=== PATIENT | female | born 1935 | race Caucasian/White ===

== ENCOUNTER → 2017-12-19 20:32 | Outpatient (CLI) | payer SELFPAY ==
[~2017-12-19 20:32] MED LIST: ELIQUIS2.5 MG PO; HYDROCODONE-APA1 TAB PO; KEFLEX500 MG PO; LEVO-T75 MCG PO; NEURONTIN 300300 MG PO; NORVASC2.5 MG PO; PROTONIX40 MG PO; TIROSINT75 MCG PO; ULTRAM50 MG PO; VITAMIN B-1000 MCG/M IM; VITAMIN B-12500 MC1 PO; VITAMIN D5000 UNIT PO
[2018-01-26 09:58] VITALS: BMI 29.8
== END | disposition home or self-care (01) ==
LOC: D.LABREF 20:32
DX: M25.561 Pain in right knee (principal); Z11.8 Encounter for screening for other infectious and parasitic diseases

== ENCOUNTER 2018-01-17 10:00 | Inpatient (IN) | payer MEDICARE, OTHER ==
[~2018-01-17] VITALS: Ht 167.6 cm; Wt 84.1 kg
--- NOTE | ~2018-01-17 | MORECARE ---
CASE MANAGEMENT DISCHARGE SUMMARY PATIENT: DARIAN CUNHA UNIT: [id number] ADM DATE: 01/22/18 AGE: 82 : 33 SEX: F ROOM/BED: D.2210 AUTHOR: CASE, TALENT REP PHYSICIAN: REFERRING PHYSICIAN: TITUS GIRON MD DATE OF SERVICE: 01/22/18 Discharge Plan Patient Name: DARIAN CUNHA Facility: [facility]:[place] : 1935 Planned Disposition: Inpatient Rehab Anticipated Discharge Date: Discharge Date: Expected LOS: Initial Reviewer: [id number] Initial Review Date: 01/25/2018 Generated: 01/25/18 10:49 am Patient Name: DARIAN CUNHA Page [id number] All edits/amendments must be made on the electronic document DICTATION DATE: 01/25/18947 PRINCIPAL ARCHITECT: 01/25/18947 RPT#: [id number] GA DATE: STATUS: ADM IN [facility] [address] [place] [address] END OF REPORT
--- NOTE | ~2018-01-17 | OP ---
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 PROCEDURE: Revision, total knee arthroplasty. SURGEON: Titus Giron MD DRAPERY OPERATOR: EDGARDO Perales INTRAOPERATIVE COMPLICATIONS: None. SUMMARY OF PATHOLOGIC FINDINGS: The patient had substantial polyethylene lysis both on the distal femur and the proximal tibia. While portion of the distal femur remained bonded, it did have large areas of cystic polyethylene lesions in the posterior femoral condyles. The tibial baseplate came out with no difficulty at all, was essentially grossly and globally loose. Substantial polyethylene lysis was seen throughout the tibia proximally. FINAL IMPLANTS USED: Quemulus Triathlon total stabilizing system; size 3 distal femur; 2-mm offset at noon; distal femoral augmentation medially and laterally at 5; distal femoral augmentation posteriorly, medially, and laterally at 10; 13 x 150 fluted stem; tibial baseplate was size 3; medial and lateral augments and tibial baseplate with a size 100 x 13 stem in the tibia; polyethylene size 16, total stabilized. OPERATIVE SUMMARY IN DETAIL: After obtaining the appropriate preoperative orthopaedic surgery consent as well as anesthetic consultation, evaluation, and clearance, the patient was brought to the operating room and placed on the operating table in the supine position. After adequate general laryngeal mask airway was administered, tourniquet was placed about the proximal aspect of the right lower extremity. The right lower extremity was then prepped and draped in routine sterile fashion. The leg was elevated, exsanguinated, and the tourniquet was inflated to 350 mmHg. Routine midline incision was taken from the previous utilized incision and taken down for paramedian arthrotomy. The patella was moved out of the way. At this point, substantial amount of polyethylene lysis was noted along with severe synovitis. The knee was flexed. Polyethylene was removed. The distal femur was removed with very little degree of bone loss; however, substantial amount of polyethylene lysis was noted. Again, the tibial baseplate was removed handy. At this point, substantial amount of time was taken to clean up all the polyethylene lysis, getting back to what appeared to be healthy bone and curettage as well as lavaging knee. Serial and sequential reaming of the distal femur was done for the above-mentioned size. The appropriate sizes were taken. After the distal femur was cut, the chamfer cutting guide was then placed with the size 5-mm augments. Having cut all the chamfers, the final trial components were created on the backtable and placed. It fit nicely and was left in place while the tibia was done. Again, the tibia was further cleared of any what appeared to be polyethylene lysis on OPERATIVE REPORT [id number] DARIAN CUNHA. All the cement in the central canal from the large Armando post was removed. Serial and sequential reaming done for size 13. After the proximal tibia was cut, the trial corresponding to the above final implant was fixed on the back field and the tibial baseplate was put into place. A 16 trial was put into place and found to be excellent. All this was removed. The knee was irrigated. The previously placed patellar button was cleaned and was not loose at all. No evidence of polyethylene lysis underneath this. For this reason, it was not removed and the wound was copiously irrigated. Final implants were assembled on the backtable. These were cemented into place. All excess cement was removed. After the cement was allowed to harden, the knee was taken through range of motion and found to be stable in all planes. Having completed this, the knee was again copiously irrigated in pulsatile lavage fashion. The paramedian arthrotomy was closed with #2 Ethibond followed by #1 Vicryl, 2-0 Vicryl, and skin slade. Sterile dressings were applied. The patient was awakened and taken to recovery room in stable condition. All final needle and sponge counts were correct. TRANSINT:[id number] Voice Confirmation ID: [id number] DOCUMENT ID: [id number] MACK SESAY, TITUS DE LA GARZA at 1147 CC: [id number] DICTATION DATE: 01/22/18 1121 PRODUCT TRANSFER PUMPER: 01/22/18 1244 [facility] [place] [id number] [place] [address]
[~2018-01-17 10:00] MED LIST changes: -ELIQUIS2.5 MG PO; -HYDROCODONE-APA1 TAB PO; -KEFLEX500 MG PO; -NORVASC2.5 MG PO; -PROTONIX40 MG PO; -TIROSINT75 MCG PO; -ULTRAM50 MG PO; -VITAMIN B-1000 MCG/M IM; -VITAMIN D5000 UNIT PO
[2018-01-17 12:01] LABS: ANION GAP 9.1 mmol/L (8-16); CALCIUM 8.7 mg/dL (8.5-10.1); CARBON DIOXIDE 31.6 mmol/L (21.0-32.0); POTASSIUM - SERUM 4.7 mmol/L (3.5-5.1)
[2018-01-17 12:20] LABS: APTT 25.1 SECONDS (22.8-39.4); INR 0.97 (0.85-1.17); PROTIME 12.5 SECONDS (11.6-15.0)
[2018-01-17 12:52] LABS: COLOR YELLOW (YELLOW)
[2018-01-17 12:53] LABS: APPEARANCE HAZY (CLEAR); BACTERIA FEW /hpf (NONE SEEN); BILIRUBIN NEGATIVE (NEGATIVE); EPITHELIAL CELLS 0-5 /hpf (0-5); GLUCOSE NEGATIVE (NEGATIVE); KETONE NEGATIVE (NEGATIVE); MUCUS <1+ /lpf (NONE SEEN); NITRITE NEGATIVE (NEGATIVE); PROTEIN NEGATIVE (NEGATIVE); RED CELLS - URINE OCC /hpf (0-5); UROBILINOGEN NORMAL (NORMAL)
[2018-01-17 13:12] LABS: BASOPHILS 0 % (0-2); EOSINOPHILS 3.4 % (0-7); HEMOGLOBIN 13.3 g/dL (12-16); LYMPHOCYTES 46.7 % (15-50); MCH 29.4 pg (26.0-34.0); MCHC 32.4 g/dL (31.0-37.0); MCV 90.5 fL (80.0-100.0); MEAN PLATELET VOLUME 10.7 fL (7.4-10.4); MONOCYTES 10.3 % (2-11); NEUTROPHILS 39.6 % (40-80); PLATELET COUNT 157 10x3/uL (130-400); RBC 4.53 10x6/uL (4.00-5.40); RDW 15.7 % (11.5-14.5); WBC 5.1 10x3/uL (4.8-10.8)
[2018-01-22] VITALS (9 sets, daily range): BP systolic 115–157; BP diastolic 52–97; Ht 167.6 cm; Wt 84.1 kg
[2018-01-23 04:55] VITALS: BP 111/49
[2018-01-23 06:22] LABS: HEMATOCRIT 33.7 % (36.0-48.0); HEMOGLOBIN 10.9 g/dL (12-16); MCH 29.3 pg (26.0-34.0); MCHC 32.3 g/dL (31.0-37.0); MCV 90.6 fL (80.0-100.0); MEAN PLATELET VOLUME 10.9 fL (7.4-10.4); RBC 3.72 10x6/uL (4.00-5.40); RDW 15.8 % (11.5-14.5)
[2018-01-23 08:37] VITALS: BP 114/50
[2018-01-23 12:29] VITALS: BP 114/47
[2018-01-23 20:00] VITALS: BP 123/42
[2018-01-24] VITALS: BP 127/46
[2018-01-24 05:04] VITALS: BP 115/92
[2018-01-24 05:46] LABS: HEMATOCRIT 28.3 % (36.0-48.0); MCH 28.8 pg (26.0-34.0); MCHC 31.8 g/dL (31.0-37.0); MCV 90.4 fL (80.0-100.0); MEAN PLATELET VOLUME 10.5 fL (7.4-10.4); RBC 3.13 10x6/uL (4.00-5.40); RDW 16.1 % (11.5-14.5); WBC 5.8 10x3/uL (4.8-10.8)
[2018-01-24 08:48] VITALS: BP 125/49
[2018-01-24 16:20] VITALS: BP 100/42
[2018-01-24 19:51] VITALS: BP 142/44
[2018-01-24 23:39] VITALS: BP 124/35
[2018-01-25 06:13] VITALS: BP 128/66
[2018-01-25] MEDS ORDERED: ELIQUIS2.5 MG PO (07:44)
[2018-01-25] MEDS ORDERED: HYDROCODONE-APA1 TAB PO (07:48)
[2018-01-25 08:34] VITALS: BP 108/53
[2018-01-25 12:40] VITALS: BP 120/48
[2018-01-25 16:51] VITALS: BP 129/48
[2018-01-25 20:52] VITALS: BP 138/48
[2018-01-25] MEDS ORDERED: NORVASC2.5 MG PO (22:06)
[2018-01-25] MEDS ORDERED: KEFLEX500 MG PO (22:07)
[2018-01-25] MEDS ORDERED: VITAMIN D5000 UNIT PO (22:10)
[2018-01-25] MEDS ORDERED: VITAMIN B-1000 MCG/M IM (22:11)
[2018-01-25] MEDS ORDERED: PROTONIX40 MG PO (22:11)
[2018-01-25] MEDS ORDERED: ULTRAM50 MG PO (22:12)
[2018-01-26] MEDS ORDERED: NEURONTIN 300300 MG PO (06:29)
[2018-01-26] MEDS ORDERED: VITAMIN B-12500 MC1 PO (06:29)
[2018-01-26] MEDS ORDERED: HYDROCODONE-APA1 TAB PO (06:30)
[2018-01-26] MEDS ORDERED: TIROSINT75 MCG PO (06:31)
== END 2018-01-25 21:36 | DRG 468 ==
LOC: D.SDCHOLD 10:00 → D.MS 01-22 07:54 → D.SDCHOLD 01-22 08:30 → D.MS 01-22 12:05 → D.SDCHOLD 01-23 13:12 → D.MS 01-23 17:33
PROVIDERS: Anesthesiology; Orthopaedic Surgery
PROC: 0SRC0J9 Replacement of Right Knee Joint with Synthetic Substitute, Cemented, Open Approach (ICD-10-PCS; 2018-01-22)
PROC: 0SPC0JZ Removal of Synthetic Substitute from Right Knee Joint, Open Approach (ICD-10-PCS; principal; 2018-01-22 09:30)
DX: T84.032A Mechanical loosening of internal right knee prosthetic joint, initial encounter (principal)

== ENCOUNTER 2018-01-25 21:34 | Inpatient (IN) | payer MEDICARE, OTHER ==
[~2018-01-25] VITALS: Ht 167.6 cm; Wt 83.9 kg
--- NOTE | ~2018-01-25 | RHP ---
PATIENT: DARIAN CUNHA MEDICAL RECORD: [id number] ACCOUNT: [id number] LOCATION:[facility] : [birth year] ADMISSION DATE: 01/25/18 REHABILITATION HISTORY AND PHYSICAL EXAMINATION POST ADMISSION PHYSICIAN EXAMINATION ADMITTING DIAGNOSES: Debility, status post complications of right total knee revision. HISTORY OF PRESENT ILLNESS: The patient was admitted to the inpatient rehab secondary to debility secondary to complications of a revision of her right knee secondary to loose hardware. She is an 82-year-old female patient that was admitted to have surgery on 01/22/2018. She had postop complications including hypoxia, requiring oxygen, and blood loss anemia. She had a complication from her surgery and definitely needs inpatient rehab to get back to her prior level of functioning and return home. COMORBIDITIES: Include revision of right total knee pain for a right total knee loose, total knee arthroplasty, acute blood loss anemia, postop hypoxia, self-care deficit, postop temp. PAST MEDICAL HISTORY: Significant for thyroid problems, urinary stress incontinence, arthritis and breast cancer. PAST SURGICAL HISTORY: Includes joint replacement, hysterectomy, and bilateral mastectomy. ALLERGIES: MORPHINE AND SHELLFISH. CURRENT MEDICATIONS: Include Synthroid 75 mcg daily, hydrocodone 10/325 one tab every 4 hours p.r.n., Neurontin 300 mg daily, B12 500 mcg daily, Eliquis 2.5 mg b.i.d., and polyethylene glycol 17 grams in 8 ounces of water daily. HABITS: No current alcohol or tobacco use. FAMILY HISTORY: Noncontributory. SOCIAL HISTORY: The patient hopes to return back home and get back to her prior level of functioning. REVIEW OF SYSTEMS: GENERAL: Does complain of some weakness. HEENT: Denies cold, cough, or congestion. CARDIOVASCULAR: Denies chest pain. PHYSICAL EXAMINATION: VITAL SIGNS: Stable, afebrile. GENERAL: An elderly female who is somewhat obese. HEENT: Normocephalic and atraumatic. Mucosa moist. NECK: Supple. No lymphadenopathy. LUNGS: Clear at this time. HEART: Regular rate and rhythm. ABDOMEN: Benign. EXTREMITIES: Does have some noted postop swelling, but appears normal. NEUROLOGIC: She does have noted weakness. HISTORY AND PHYSICAL [id number] DARIAN CUNHA LABORATORY DATA: Her white count is 5.1, H&H 8.9 and 27.3 and platelet count is noted to be 160. Her sodium is 141, potassium 4.0, BUN and creatinine of 12 and 0.9, blood sugar is noted to be 93. ASSESSMENT: This is an 82-year-old female patient admitted to rehab with a working diagnosis secondary to postop complications of a right total knee revision. The patient has potential to make improvement. We instituted the following multidisciplinary therapies including, but not limited to physical, occupational, respiratory, speech, nutritional services, prosthetics and orthotics. Given her complex medical condition and risk for more complications, rehabilitation services cannot be provided at a low level of care such as skilled nurse facility. PLAN: 1. Admit to [facility] for intensive inpatient therapy to include the following disciplines: A. Physical therapy to improve gait, all transfer skills and bed mobility to a modified independent level. B. Occupational therapy to a modified independent level. C. Case management to assist with discharge planning and placement options. D. Nutrition to assist with nutritional needs. E. Rehabilitation nursing to assist in monitoring the patient's underlying medical conditions and to assist with any type of bowel or bladder management. 2. The patient's current medication and medical care will be continued. 3. The patient will be placed on standard fall precautions. 4. The patient's estimated length of stay is approximately 7 to 10 days. 5. Discuss the patient during care team staff meeting this week. TRANSINT:[id number] Voice Confirmation ID: [id number] DOCUMENT ID: [id number] ZONIA notes whether there has been none or any medical/functional change since admission: - NO CHANGE SINCE PRESCREEN. ZONIA attests patient continues to be appropriate for IRF: - CONTINUES TO BE APPROPRIATE. BRIGID ARENAS MD at 1757 CC: [id number] DICTATION DATE: 01/26/18 0816 FIELD CANE SCALER HELPER: 01/26/18 0932 DIS IN 02/07/18 [facility] [address] [place] [place] [id number]
[~2018-01-25 21:34] MED LIST changes: +ELIQUIS2.5 MG PO; +HYDROCODONE-APA1 TAB PO
[2018-01-25] MEDS ORDERED: NORVASC2.5 MG PO (22:06)
[2018-01-25] MEDS ORDERED: KEFLEX500 MG PO (22:07)
[2018-01-25] MEDS ORDERED: VITAMIN D5000 UNIT PO (22:10)
[2018-01-25] MEDS ORDERED: VITAMIN B-1000 MCG/M IM (22:11)
[2018-01-25] MEDS ORDERED: PROTONIX40 MG PO (22:11)
[2018-01-25] MEDS ORDERED: ULTRAM50 MG PO (22:12)
[2018-01-25 23:35] VITALS: BP 152/58; BMI 29.9
[2018-01-26 06:16] LABS: BASOPHILS 0.2 % (0-2); EOSINOPHILS 3.3 % (0-7); HEMATOCRIT 27.3 % (36.0-48.0); HEMOGLOBIN 8.9 g/dL (12-16); IMMATURE GRANULOCYTES 0.2 % (0-5); LYMPHOCYTES 44.4 % (15-50); MCH 29.1 pg (26.0-34.0); MCHC 32.6 g/dL (31.0-37.0); MCV 89.2 fL (80.0-100.0); MEAN PLATELET VOLUME 10.1 fL (7.4-10.4); NEUTROPHILS 41.9 % (40-80); RBC 3.06 10x6/uL (4.00-5.40); WBC 5.1 10x3/uL (4.8-10.8)
[2018-01-26 06:21] LABS: PLATELET COUNT 160 10x3/uL (130-400)
[2018-01-26] MEDS ORDERED: NEURONTIN 300300 MG PO (06:29)
[2018-01-26] MEDS ORDERED: VITAMIN B-12500 MC1 PO (06:29)
[2018-01-26] MEDS ORDERED: HYDROCODONE-APA1 TAB PO (06:30)
[2018-01-26] MEDS ORDERED: TIROSINT75 MCG PO (06:31)
[2018-01-26 06:37] LABS: CALCIUM 7.9 mg/dL (8.5-10.1); CREATININE - SERUM 0.9 mg/dL (0.6-1.3)
[2018-01-26 08:14] VITALS: BP 138/58
[2018-01-26 09:58] VITALS: Ht 167.6 cm; Wt 83.9 kg
[2018-01-26 19:00] VITALS: BP 145/60
[2018-01-27 08:16] VITALS: BP 153/58
[2018-01-27 23:35] VITALS: BP 119/54
[2018-01-28 07:37] VITALS: BP 123/50
[2018-01-28 20:00] VITALS: BP 136/51
[2018-01-29 07:08] LABS: BASOPHILS 0.2 % (0-2); EOSINOPHILS 5.3 % (0-7); HEMATOCRIT 29.6 % (36.0-48.0); HEMOGLOBIN 9.5 g/dL (12-16); IMMATURE GRANULOCYTES 0.4 % (0-5); LYMPHOCYTES 40.9 % (15-50); MCH 28.8 pg (26.0-34.0); MCHC 32.1 g/dL (31.0-37.0); MCV 89.7 fL (80.0-100.0); MEAN PLATELET VOLUME 9.1 fL (7.4-10.4); NEUTROPHILS 41.2 % (40-80); RDW 16.2 % (11.5-14.5); WBC 5.5 10x3/uL (4.8-10.8)
[2018-01-29 07:09] LABS: PLATELET COUNT 211 10x3/uL (130-400)
[2018-01-29 07:20] LABS: ANION GAP 10.7 mmol/L (8-16); CALCIUM 8.2 mg/dL (8.5-10.1); CARBON DIOXIDE 28.4 mmol/L (21.0-32.0); CREATININE - SERUM 0.9 mg/dL (0.6-1.3); POTASSIUM - SERUM 4.1 mmol/L (3.5-5.1)
[2018-01-29 08:00] VITALS: BP 135/53
[2018-01-29 19:00] VITALS: BP 130/52
[2018-01-30 08:22] VITALS: BP 148/52
[2018-01-30 19:00] VITALS: BP 145/64
[2018-01-31 07:21] LABS: BASOPHILS 0.2 % (0-2); EOSINOPHILS 4.6 % (0-7); HEMATOCRIT 29.4 % (36.0-48.0); HEMOGLOBIN 9.5 g/dL (12-16); IMMATURE GRANULOCYTES 0.4 % (0-5); LYMPHOCYTES 40.8 % (15-50); MCH 29.1 pg (26.0-34.0); MCHC 32.3 g/dL (31.0-37.0); MCV 89.9 fL (80.0-100.0); MEAN PLATELET VOLUME 8.4 fL (7.4-10.4); MONOCYTES 9.7 % (2-11); NEUTROPHILS 44.3 % (40-80); PLATELET COUNT 231 10x3/uL (130-400); RBC 3.27 10x6/uL (4.00-5.40); RDW 16.3 % (11.5-14.5); WBC 5.7 10x3/uL (4.8-10.8)
[2018-01-31 07:48] LABS: ANION GAP 11.1 mmol/L (8-16); CALCIUM 8.2 mg/dL (8.5-10.1); CREATININE - SERUM 0.8 mg/dL (0.6-1.3); POTASSIUM - SERUM 4.1 mmol/L (3.5-5.1)
[2018-01-31 08:16] VITALS: BP 140/57
[2018-01-31 19:00] VITALS: BP 128/46
[2018-02-01 08:00] VITALS: BP 133/47
[2018-02-01 19:52] VITALS: BP 139/45
[2018-02-02 07:08] LABS: ANION GAP 12.6 mmol/L (8-16); CALCIUM 8.5 mg/dL (8.5-10.1); CARBON DIOXIDE 24.4 mmol/L (21.0-32.0); CREATININE - SERUM 0.8 mg/dL (0.6-1.3)
[2018-02-02 07:18] LABS: BASOPHILS 0.2 % (0-2); EOSINOPHILS 5.5 % (0-7); HEMATOCRIT 30.5 % (36.0-48.0); HEMOGLOBIN 9.7 g/dL (12-16); IMMATURE GRANULOCYTES 0.4 % (0-5); LYMPHOCYTES 41.7 % (15-50); MCHC 31.8 g/dL (31.0-37.0); MCV 91.3 fL (80.0-100.0); MEAN PLATELET VOLUME 9.3 fL (7.4-10.4); MONOCYTES 8.9 % (2-11); NEUTROPHILS 43.3 % (40-80); PLATELET COUNT 280 10x3/uL (130-400); RBC 3.34 10x6/uL (4.00-5.40); RDW 16.3 % (11.5-14.5); WBC 5.4 10x3/uL (4.8-10.8)
[2018-02-02 08:00] VITALS: BP 119/60
[2018-02-02 19:55] VITALS: BP 139/45
[2018-02-03 08:00] VITALS: BP 142/61
[2018-02-04 08:11] VITALS: BP 148/57
[2018-02-04 18:00] VITALS: BP 137/45
[2018-02-05 07:05] LABS: BASOPHILS 0.2 % (0-2); HEMOGLOBIN 10.4 g/dL (12-16); IMMATURE GRANULOCYTES 0.4 % (0-5); LYMPHOCYTES 42.8 % (15-50); MCH 28.7 pg (26.0-34.0); MCHC 31.5 g/dL (31.0-37.0); MCV 90.9 fL (80.0-100.0); MONOCYTES 8.3 % (2-11); NEUTROPHILS 43.3 % (40-80); PLATELET COUNT 327 10x3/uL (130-400); RBC 3.63 10x6/uL (4.00-5.40); RDW 16.6 % (11.5-14.5); WBC 5.5 10x3/uL (4.8-10.8)
[2018-02-05 07:27] LABS: ANION GAP 11.8 mmol/L (8-16); CALCIUM 8.5 mg/dL (8.5-10.1); CARBON DIOXIDE 28.2 mmol/L (21.0-32.0); CREATININE - SERUM 0.9 mg/dL (0.6-1.3)
[2018-02-05 07:52] VITALS: BP 157/62
[2018-02-05 19:00] VITALS: BP 124/47
[2018-02-06 08:00] VITALS: BP 148/56
[2018-02-06 18:00] VITALS: BP 132/55
[2018-02-07] MEDS ORDERED: NORCO-5 PO (08:00)
[2018-02-07 08:22] VITALS: BP 149/66
== END 2018-02-07 14:00 | disposition home or self-care (01) | DRG 949 ==
LOC: D.REHAB 21:34
PROVIDERS: Emergency Medicine
DX: T84.89XD Other specified complication of internal orthopedic prosthetic devices, implants and grafts, subsequent encounter (principal); D62 Acute posthemorrhagic anemia; R53.81 Other malaise; Z96.651 Presence of right artificial knee joint; R50.82 Postprocedural fever